=== PATIENT | male | born 1945 | race Caucasian/White ===

== ENCOUNTER → 2020-06-05 | Outpatient (CLI) | payer MEDICARE, OTHER ==
--- NOTE | 2020-06-06 11:00 | RADIOLOGY REPORT (SQ) ---
EXAM DESCRIPTION: CAROTID DOPPLER IMAGES COMPLETED DATE/TIME: 06/05/2020 12:02 pm REASON FOR STUDY: CAROTID STENOSIS I65.23 OCCLUSION AND STENOSIS OF BILATERAL CAROTID ARTERIES COMPARISON: None. TECHNIQUE: Grayscale ultrasound, Doppler velocity and spectra, and color Doppler images acquired of the extra-cranial carotid and vertebral arteries. Images stored on PACS. LIMITATIONS: None. FINDINGS: RIGHT CAROTID CCA Velocities: Within normal limits. ICA Velocities Peak systolic 142 cm/s. End diastolic 27 cm/s. Proximal ICA/CCA peak systolic ratio 1.9. High flow velocities in the external carotid with over 70% stenosis. There is 50 to 69% stenosis in the internal carotid with calcified plaques LEFT CAROTID CCA Velocities: Within normal limits. ICA Velocities Peak systolic 159 cm/s. End diastolic 31 cm/s. Proximal ICA/CCA peak systolic ratio 1.8. Calcified plaque in the internal and external carotid artery. Over 70% stenosis of the external valle tid. 50 to 69% stenosis of the internal carotid. VERTEBRAL ARTERIES: Antegrade flow. Normal waveforms. SUBCLAVIAN ARTERIES: No finding. OTHER: No other significant finding. IMPRESSION: There is 50 to 69% stenosis of each internal carotid artery and over 70% stenosis of eac h external carotid. COMMENT: Quality ID #[id number]: Velocity criteria are extrapolated from the diameter data as defined by t he Society of Radiologists in Ultrasound Consensus Conference. Radiology 2003: 229; 340-346. TECHNICAL DOCUMENTATION: JOB ID: [id number] 2010 [employer]- All Rights Reserved Reading location - IP/workstation name: [email or web address]
== END ==
LOC: RAD 11:00
PROVIDERS: ATTEND Family Medicine
DX: I65.23 Occlusion and stenosis of bilateral carotid arteries (principal)
CPT/HCPCS: 93880